=== PATIENT | female | born 1950 | race Caucasian/White ===

== ENCOUNTER 2017-09-16 21:04 | Emergency (ER) | payer OTHER ==
[~2017-09-16] VITALS: Ht 165.1 cm; Wt 88.5 kg
[~2017-09-16 21:04] MED LIST: SYNTHROID125 MCG; VERAPAMIL ER180 MG
[2017-09-16] MEDS ORDERED: NEURONTIN600 MG PO (21:21)
[2017-09-17] MEDS ORDERED: ZOFRAN4 MG PO (07:58)
[2017-09-17] MEDS ORDERED: CEFUROXIME250 MG PO (07:58)
[2017-09-17] MEDS ORDERED: PEPCID40 MG PO (07:58)
== END 2017-09-17 08:26 | disposition home or self-care (01) ==
LOC: ER 21:04
DX: C50.919 Malignant neoplasm of unspecified site of unspecified female breast (principal); R11.2 Nausea with vomiting, unspecified; N39.0 Urinary tract infection, site not specified

== ENCOUNTER 2017-09-22 19:10 | Emergency (ER) | payer OTHER ==
[~2017-09-22] VITALS: Ht 157.5 cm; Wt 82.1 kg
[~2017-09-22 19:10] MED LIST changes: +CEFUROXIME250 MG PO; +NEURONTIN600 MG PO; +PEPCID40 MG PO; +ZOFRAN4 MG PO
[2017-09-23] MEDS ORDERED: INTESTINEX680 M1 PO (06:17)
[2017-09-23] MEDS ORDERED: ZANTAC300 MG PO (06:17)
== END 2017-09-23 06:17 | disposition home or self-care (01) ==
LOC: ER 19:10
DX: K52.9 Noninfective gastroenteritis and colitis, unspecified (principal)

== ENCOUNTER 2017-10-03 22:10 | Emergency (ER) | payer OTHER ==
[~2017-10-03] VITALS: Ht 167.6 cm; Wt 83.9 kg
[~2017-10-03 22:10] MED LIST changes: +INTESTINEX680 M1 PO; +ZANTAC300 MG PO
[2017-10-04] MEDS ORDERED: VERAPAMIL SR180 MG PO (08:40)
== END 2017-10-04 09:44 | disposition home or self-care (01) ==
LOC: ER 22:10
DX: R07.89 Other chest pain (principal); R51 Headache